=== PATIENT | male | born 1985 | race Caucasian/White ===

== ENCOUNTER 2018-05-10 14:30 | Emergency (ER) | payer BC ==
[~2018-05-10] VITALS: Ht 177.8 cm; Wt 81.6 kg
[2018-05-10 14:54] VITALS: Ht 177.8 cm; Wt 81.6 kg
[2018-05-10 17:49] VITALS: BP 130/78
== END 2018-05-10 17:44 | disposition home or self-care (01) ==
LOC: ED 14:30
DX: G43.909 Migraine, unspecified, not intractable, without status migrainosus (principal); R11.2 Nausea with vomiting, unspecified; H53.149 Visual discomfort, unspecified
CPT/HCPCS: J1200; J2765; J7030